=== PATIENT | female | born 1970 | race Caucasian/White ===

== ENCOUNTER 2019-09-13 12:56 | Emergency (ER) | payer OTHER ==
[~2019-09-13] VITALS: Ht 154.9 cm; Wt 63.6 kg
[2019-09-13] MEDS ORDERED: KETOROLAC TROMETHAMINE 10 MG TABLET PO ONE (15:15)
[2019-09-13] MEDS ORDERED: ONDANSETRON HCL 4 MG TABLET PO ONE (17:15)
[2019-09-13 17:33] VITALS: BP 132/77
== END 2019-09-13 17:53 | disposition home or self-care (01) ==
LOC: EMS 13:01
DX: S39.012A Strain of muscle, fascia and tendon of lower back, initial encounter (principal); S00.83XA Contusion of other part of head, initial encounter; S80.02XA Contusion of left knee, initial encounter; M25.462 Effusion, left knee; W18.39XA Other fall on same level, initial encounter; Y93.89 Activity, other specified; Y92.69 Other specified industrial and construction area as the place of occurrence of the external cause; Y99.0 Civilian activity done for income or pay
CPT/HCPCS: 29505; 73562; 99283; Q0162

== ENCOUNTER 2019-09-18 11:08 | Emergency (ER) | payer OTHER ==
[~2019-09-18] VITALS: Ht 154.9 cm; Wt 79.0 kg
[2019-09-18 11:15] VITALS: BP 113/77
== END 2019-09-18 13:00 | disposition home or self-care (01) ==
LOC: EMS 11:13
DX: M25.562 Pain in left knee (principal)